=== PATIENT | female | born 1985 | race Caucasian/White ===

== ENCOUNTER 2016-10-02 10:32 | Emergency (ER) | payer SELFPAY ==
[~2016-10-02] VITALS: Ht 152.4 cm; Wt 55.8 kg
[2016-10-02 10:37] VITALS: BP 151/94
[2016-10-02 11:52] LABS: Basophils # (auto) 0.1 uL; Basophils % (auto) 0.5 % (0.0-2.0); Eosinophils # (auto) 0.2 uL; Eosinophils % (auto) 1.5 % (0.0-7.0); Hemoglobin 14.6 g/dL (12.2-16.2); Lymphocytes # (auto) 3.3 uL; Lymphocytes % (auto) 32.6 % (10.0-50.0); Mean Corpuscular Hemoglobin 31.5 pg (28.0-32.0); Mean Corpuscular Hgb Conc. 33.3 g/dL (32.0-36.0); Mean Corpuscular Volume 94.6 fL (80.0-100.0); Mean Platelet Volume 8.1 fL (7.4-10.4); Monocytes # (auto) 0.7 uL; Monocytes % (auto) 7.1 % (0.0-12.0); Neutrophils # (auto) 5.9 uL; Neutrophils % (auto) 58.3 % (37.0-80.0); Platelet Count (auto) 344 10^3/uL (140-450); Red Cell Distribution Width 12.5 % (11.6-16.0); SUSPECT VIEW TRANSMISSION; White Blood Cell 10.1 10^3/uL (4.4-10.8)
[2016-10-02 12:02] LABS: Salicylate < 1.7 mg/dL (2.8-20.0)
[2016-10-02 12:03] LABS: Acetaminophen < 2.0 ug/mL (10-30)
[2016-10-02 12:20] LABS: Albumin 4.5 g/dL (3.4-5.0); Alkaline Phosphatase 52 U/L (45-117); Anion Gap 10 (5-15); Aspartate Aminotransferase 11 U/L (15-37); BUN/Creatinine Ratio 27.9; Blood Urea Nitrogen 19 mg/dL (7-18); Calcium 9.6 mg/dL (8.5-10.1); Carbon Dioxide 21 mmol/L (21-32); Chloride 105 mmol/L (98-107); GFR African American 131 mL/min; GFR Non-African American 108 mL/min; Glucose 97 mg/dL (74-106); Sodium 136 mmol/L (136-145); Total Protein 8.4 g/dL (6.4-8.2)
== END 2016-10-02 15:23 | disposition left against medical advice (07) ==
LOC: ER 10:35
DX: R55 Syncope and collapse (principal); Z53.21 Procedure and treatment not carried out due to patient leaving prior to being seen by health care provider
CPT/HCPCS: 36415; 80053; 80329; 85025; 93005